=== PATIENT | male | born 1960 | race Caucasian/White ===

== ENCOUNTER → 2021-03-16 | Outpatient (CLI) | payer OTHER ==
[~2021-03-16] MED LIST: MULT-445 PO; iron supplement
== END ==
LOC: LAB 07:00
PROVIDERS: ATTEND Nurse Anesthetist, Certified Registered
DX: Z01.812 Encounter for preprocedural laboratory examination (principal); Z20.822 Contact with and (suspected) exposure to COVID-19
CPT/HCPCS: U0003

== ENCOUNTER → 2021-03-20 | Day surgery (SDC) | payer OTHER ==
[~2021-03-20] MED LIST changes: +IPRATRPIUM/ALBUTEROL 0.5/2.5MG 3 ML NEBU. NEB PRN; +IV RINGERS SOLUTION,LACTATED 1,000 ML IV SCH; +LIDOCAINE 2% PF 5 ML VIAL. ONE; +MIDAZOLAM HCL PF 2 MG/2 ML VIAL. IV ONE; +ONDANSETRON PF 4 MG/2 ML VIAL. IV PRN; +PROPOFOL 10,000 MCG/ML (20ML) VIAL IV ONE
[2021-03-20 10:38] VITALS: BP 143/84
--- NOTE | 2021-03-22 12:07 | PATHOLOGY ---
[facility] Accession Number: [id number] . 01 Material submitted: . hepatic flexure - HEPATIC FLEXURE POLYP . 01 Clinical history: . SCREENING COLONOSCOPY . 02 Diagnosis: Colon biopsy, hepatic flexure polyp: - Hyperplastic polyp. ([facility]; 03/22/2021) [facility] 03/22/2021 0909 Local . 02 Comment: There are no adenomatous changes or evidence of malignancy. ([facility]; 03/22/2021) . . 02 Electronically signed: . Shoaib Tate MD, Pathologist NPI- [id number] . 01 Gross description: . Received in formalin labeled "Malotte, Tam and hepatic flexure polyp". Received is a patrick-thompson soft tissue fragment measuring 0.5 x 0.5 x 0.1 cm. The specimen is entirely submitted in cassette A1.([facility]; 03/21/2021) [facility] 03/22/2021 0908 Local . 02 Pathologist provided ICD-10: K63.5 . 02 CPT . 227239 Specimen Comment: A courtesy copy of this report has been sent to [phone] Specimen Comment: [phone] Specimen Comment: Report sent to / DR MCMAHON Performed at: 01 [facility] [address], [place] [id number] MD Jair Prado MD Phone: [phone] Performed at: 02 [facility] [address], [place] [id number] MD Shoaib Tate MD Phone: [phone]
== END | disposition home or self-care (01) ==
LOC: SURG 08:43
PROVIDERS: ATTEND Internal Medicine Gastroenterology
DX: Z12.11 Encounter for screening for malignant neoplasm of colon (principal); K63.5 Polyp of colon; K57.30 Diverticulosis of large intestine without perforation or abscess without bleeding; Z79.899 Other long term (current) drug therapy; Z72.89 Other problems related to lifestyle
CPT/HCPCS: 45380; J2001; J2704; J7120

== ENCOUNTER 2021-05-07 16:56 | Emergency (ER) | payer OTHER ==
[~2021-05-07] VITALS: Ht 177.8 cm; Wt 77.3 kg
[~2021-05-07 16:56] MED LIST changes: -IPRATRPIUM/ALBUTEROL 0.5/2.5MG 3 ML NEBU. NEB PRN; -IV RINGERS SOLUTION,LACTATED 1,000 ML IV SCH; -LIDOCAINE 2% PF 5 ML VIAL. ONE; -MIDAZOLAM HCL PF 2 MG/2 ML VIAL. IV ONE; -ONDANSETRON PF 4 MG/2 ML VIAL. IV PRN; -PROPOFOL 10,000 MCG/ML (20ML) VIAL IV ONE
[2021-05-07] MEDS ORDERED: MORPHINE SULFATE 4 MG/ML DISP.SYRIN. ONE (17:51)
--- NOTE | 2021-05-07 17:58 | PHYS DOC ---
Past History Past Surgical History: Appendectomy (DIAAN BLOUNT MD) General Adult EDM: Chief Complaint: ABDOMINAL PAIN HPI: HPI: Patient is a 60-year-old male coming in for abdominal pain and mass starting 2 hours prior to arrival. 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 Did not feel a pop or tear. States he would sit down and noticed a bulge in his abdomen. Has had nausea without vomiting. Says the pain is severe. Denies any prior history of known hernia at that site or others. Past history of appendectomy about 40 years ago. Denies any the past medical history. (DIANA BLOUNT MD) Review of Systems: Review of Systems: All other systems within normal limits except for as noted in the HPI (DIANA BLOUNT MD) Current Medications: Current Meds: Current Medications Medications (Trade) Dose Ordered Sig/Owen Start Time Stop Time Status Last Admin Dose Admin Morphine Sulfate (Morphine 4mg Syringe) 4 mg STK-MED ONCE 05/07/21 17:51 05/07/21 17:52 DC Ondansetron HCl (Zofran) 4 mg 1X ONCE 05/07/21 18:00 05/07/21 18:01 (DIANA BLOUNT MD) Allergies: Allergies: Allergies Coded Allergies Type Severity Reaction Last Updated Verified No Known Drug Allergies 03/20/21 No (DIANA BLOUNT MD) Physical Exam: PE: Constitutional: Well developed, well nourished, moderate and dry heaving HENT: Normocephalic, atraumatic, bilateral external ears normal, nose normal. [] Eyes: PERRLA, conjunctiva normal, no discharge. [] Neck: No rigidity, supple, no stridor. [] Cardiovascular: Regular rate and rhythm, brisk cap refill [] Lungs & Thorax: Non labored symmetric respirations, no tachypnea or respiratory distress [] Abdomen: Soft, nondistended, tenderness and a 10 cm diameter mass on anterior abdomen. Skin: Warm, dry, no erythema, no rash. [] Back: Unremarkable Extremities: No deformities, range of motion grossly intact, no lower extremity edema [] Neurologic: Alert and oriented X 3, no focal deficits noted. [] Psychologic: Affect normal, judgement normal, mood normal. [] (DIANA BLOUNT MD) Current Patient Data: Vital Signs: Vital Signs Date Time Temp Pulse Resp B/P (MAP) Pulse Ox O2 Delivery O2 Flow Rate FiO2 05/07/21 17:40 58 194/109 (137) 96 Room Air 05/07/21 17:19 98.3 20 (DIANA BLOUNT MD) EKG: EKG: [] (DIANA BLOUNT MD) Radiology/Procedures: Radiology/Procedures: [] (DIANA BLOUNT MD) Heart Score: C/O Chest Pain: No Risk Factors: Risk Factors: DM, Current or recent (<one month) smoker, HTN, HLP, family history of CAD, obesity. Risk Scores: Score 0 - 3: 2.5% MACE over next 6 weeks - Discharge Home Score 4 - 6: 20.3% MACE over next 6 weeks - Admit for Clinical Observation Score 7 - 10: 72.7% MACE over next 6 weeks - Early Invasive Strategies (DIANA BLOUNT MD) Course & Med Decision Making: Course & Med Decision Making Care transition at shift change. (DIANA BLOUNT MD) Course & Med Decision Making Patient care handed off to me at checkout pending CT. Patient alert and oriented no acute distress. Given morphine for pain. CT notable for anterior abdominal wall strangulated hernia with fatty infiltration and probable disc developing obstruction. Made n.p.o. Patient nausea controlled. Started on antibiotics. Discussed patient with Dr. Bower who felt patient was appropriate for admission to [place] for surgical evaluation. Discussed findings with patient who verbalized understanding agreed with plan of transfer and admission. (JERICHO LOPEZ MD) Dragon Disclaimer: Dragon Disclaimer: This electronic medical record was generated, in whole or in part, using a voice recognition dictation system. (DIANA BLOUNT MD) Departure Departure: Referrals: PREMA MCMAHON MD (PCP) DIANA BLOUNT MD May 07, 2021 17:58 JERICHO LOPEZ MD May 07, 2021 19:32
[2021-05-07] MEDS ORDERED: IOHEXOL 300 MG/ML 75 ML VIAL. IV ONE (18:00)
[2021-05-07] MEDS ORDERED: ONDANSETRON PF 4 MG/2 ML VIAL. IVP ONE ×2 (18:00→18:30)
[2021-05-07] MEDS ORDERED: MORPHINE SULFATE 4 MG/ML DISP.SYRIN. IV ONE ×2 (18:00→18:30)
[2021-05-07 18:23] LABS: BASO % 1 % (0-3); EOS # 0.1 x10^3/uL (0.0-0.7); EOS % 1 % (0-3); HEMATOCRIT 43.8 % (39.0-53.0); HEMOGLOBIN 14.5 g/dL (13.0-17.5); LYMPH # 2.3 x10^3/uL (1.0-4.8); LYMPH % 34 % (24-48); MEAN CORPUSCULAR HEMOGLOBIN 30 pg (25-35); MEAN CORPUSCULAR HGB CONC 33 g/dL (31-37); MEAN CORPUSCULAR VOLUME 90 fL (79-100); MONO # 0.4 x10^3/uL (0.0-1.1); MONO % 7 % (0-9); NEUT # 3.9 x10^3uL (1.8-7.7); NEUT % 58 % (31-73); PLATELET COUNT 255 x10^3/uL (140-400); RED BLOOD COUNT 4.86 x10^6/uL (4.30-5.70); RED CELL DISTRIBUTION WIDTH 14.8 % (11.5-14.5); WHITE BLOOD COUNT 6.7 x10^3/uL (4.0-11.0)
[2021-05-07 18:26] LABS: CALCIUM 9.6 mg/dL (8.5-10.1); CREATININE 0.9 mg/dL (0.7-1.3); GFR 86.1; POTASSIUM 3.7 mmol/L (3.5-5.1)
[2021-05-07] MEDS ORDERED: IV RINGERS SOLUTION,LACTATED 1,000 ML IV ONE (18:30)
[2021-05-07] MEDS ORDERED: MORPHINE SULFATE 2 MG/ML DISP.SYRIN. IV ONE (18:30)
[2021-05-07 18:32] LABS: ALBUMIN 4.3 g/dL (3.4-5.0); ALBUMIN/GLOBULIN RATIO 1.2 (1.0-1.7); TOTAL BILIRUBIN 0.6 mg/dL (0.2-1.0); TOTAL PROTEIN 7.9 g/dL (6.4-8.2)
--- NOTE | 2021-05-07 19:20 | RAD ---
CT ABDOMEN+PELVIS W History: Reason: Severe abd pain, incarcerated hernia Omni 300 75cc / Spl. Instructions: / History: Technique: After the administration of intravenous contrast, CT imaging was performed of the abdomen and pelvis. Multiplanar images are reviewed. Exposure: One or more of the following individualized dose reduction techniques were utilized for thi s examination: 1. Automated exposure control 2. Adjustment of the mA and/or kV according to patient size 3. Use of iterative reconstruction technique. Comparison: None Findings: Motion degraded evaluation. Lower chest: Lingular calcified pulmonary nodule, likely prior granulomatous disease. Abdomen and pelvis: Small left posterior hepatic lesion measures 0.6 cm, too small to further charact erize. The spleen, adrenal glands, and pancreas are unremarkable. Contracted gallbladder. No biliary ductal dilatation. Left renal hypodensity, likely cyst. No hydronephrosis. No renal calculus. Mildly distended stool-filled rectum. Colonic diverticulosis. Appendix not well seen. Anterior abdominal wall hernia containing small bowel loop dilated with fluid. Mild adjacent infiltra tion of the fat. Fascial defect measures 0.6 cm. Hernia sac measures 5.9 x 2.9 cm. There is mildly di lated loops of small bowel within the left mid abdomen with fluid-filled bowel in the pelvis. No pneu matosis. No pneumoperitoneum. Bones: Left sacral sclerotic lesion, likely bone island. Impression: 1. Motion degraded evaluation. 2. Anterior abdominal wall hernia containing dilated loop of small bowel with adjacent fat infiltrat ion, concerning for strangulated hernia. Recommend further clinical evaluation. 3. Dilated loops of small bowel within the abdomen, may represent developing obstruction. 4. Mildly distended stool-filled rectum. Electronically signed by: Juan F Sun DO (05/07/2021 7:18 PM) [facility]
[2021-05-07] MEDS ORDERED: PIPERACILLIN/TAZOBACTAM 4.5 GM in IV NORMAL SALINE 50ML 50 ML IV ONE (19:30)
[2021-05-07] MEDS ORDERED: PIPERACILLIN/TAZOBACTAM 4.5 GM VIAL IV ONE (19:39)
[2021-05-07] MEDS ORDERED: IV NORMAL SALINE 50ML 50 ML ONE ×2 (19:39→19:51)
[2021-05-07 19:41] VITALS: BP 157/87
== END 2021-05-07 20:05 | disposition short-term general hospital (02) ==
LOC: ER 16:56
DX: R19.09 Other intra-abdominal and pelvic swelling, mass and lump (principal); R10.9 Unspecified abdominal pain; Z53.21 Procedure and treatment not carried out due to patient leaving prior to being seen by health care provider; Z90.89 Acquired absence of other organs
CPT/HCPCS: 36415; 74177; 80053; 83605; 83690; 85025; 87426; 96361; 96374; 96375; 96376; 99285; C9803; J2270; J2405; J2543; J7120; Q9967; U0003